=== PATIENT | male | born 1950 | race Caucasian/White ===

== ENCOUNTER 2021-08-10 09:42 | Day surgery (SDC) | payer MEDICARE, MEDICAID ==
[2021-08-10] VITALS (18 sets, daily range): BP systolic 64–107; BP diastolic 39–67
[~2021-08-10] VITALS: Ht 172.7 cm; Wt 88.8 kg
[2021-08-10] MEDS ORDERED: normal saline 1000ml 1,000 ML IV SCH (10:05)
[2021-08-10] MEDS ORDERED: fentaNYL/PF 50MCG/1 ML 2ML syringe IV ONE (10:05)
[2021-08-10] MEDS ORDERED: MIDAZolam 1mg/ml 10ml vial IV ONE (10:05)
[2021-08-10] MEDS ORDERED: BENA10TA74 PO (10:16)
[2021-08-10] MEDS ORDERED: ATOR40TA72 PO (10:16)
[2021-08-10] MEDS ORDERED: ALBU8.5H17 (10:16)
[2021-08-10] MEDS ORDERED: METO50TA7 PO (10:16)
[2021-08-10] MEDS ORDERED: UMEC1DIS (10:16)
[2021-08-10] MEDS ORDERED: RIVA20TA PO (10:16)
[2021-08-10] MEDS ORDERED: POTA-192 PO (10:16)
[2021-08-10] MEDS ORDERED: FURO20TA4 PO (10:16)
[2021-08-10] MEDS ORDERED: SOTA80TA PO (10:16)
== END 2021-08-10 16:00 | disposition home or self-care (01) ==
LOC: SSTAY O 09:42
PROVIDERS: ATTEND Internal Medicine Interventional Cardiology
DX: I48.91 Unspecified atrial fibrillation (principal); I48.92 Unspecified atrial flutter; E78.5 Hyperlipidemia, unspecified; I65.23 Occlusion and stenosis of bilateral carotid arteries; I11.0 Hypertensive heart disease with heart failure; I50.9 Heart failure, unspecified; J44.9 Chronic obstructive pulmonary disease, unspecified; Z88.8 Allergy status to other drugs, medicaments and biological substances; Z79.899 Other long term (current) drug therapy
CPT/HCPCS: 92960; 93005